=== PATIENT | female | born 1980 | race Caucasian/White ===

== ENCOUNTER 2017-10-27 16:46 | Emergency (ER) | payer OTHER ==
[~2017-10-27] VITALS: Ht 154.9 cm; Wt 50.0 kg
[2017-10-27 16:48] VITALS: BP 100/57; TEMP 99.5
[2017-10-27 17:22] LABS: COLLECTION METHOD CLEAN CATCH
[2017-10-27 17:28] LABS: PH 8 (5-8); SQUAMOUS EPITHELIAL 0-2 /hpf; URINE APPEARANCE Hazy; URINE BACTERIA None Seen /hpf; URINE BILIRUBIN Negative (NEGATIVE); URINE BLOOD Negative (NEGATIVE); URINE COLOR Straw; URINE GLUCOSE Negative (NEGATIVE); URINE KETONE Negative (NEGATIVE); URINE LEUKOCYTE ESTERASE 3+ (NEGATIVE); URINE NITRATE Negative (NEGATIVE); URINE PROTEIN(semi-quant) Negative (NEGATIVE); URINE RBC 0-2 /hpf; URINE UROBILINOGEN Negative (NEGATIVE)
[2017-10-27 17:59] LABS: BASO % 0.3 % (0.0-2.0); EOS # 0.1 (0.0-0.7); EOS % 1.9 % (0-4.0); GRAN % 63.1 % (42.2-75.2); LYMPH # 1.8 (1.2-3.4); LYMPH % 28.2 % (20.0-51.0); MEAN CELL VOLUME 67 fl (80.0-100.0); MEAN CORPUSCULAR HGB CONC 29 g/dl (33.0-37.0); MONO # 0.4 (0.1-0.6); MONO % 6.3 % (1.7-9.3); PLATELET COUNT 236 K/mm3 (130-400); RED BLOOD COUNT 4.92 M/mm3 (4.10-5.30); REDCELL DISTRIBUTION WIDTH-CV 19.9 % (11.5-14.5)
[2017-10-27] MEDS ORDERED: CEFTIN250 MG/5 M PO (18:03)
[2017-10-27 18:06] LABS: ALBUMIN 4.3 gm/dL (3.5-5.0); BILIRUBIN,TOTAL 0.5 mg/dL (0.0-1.0); CALCIUM 8.9 mg/dL (8.4-10.2); CREATININE, serum 0.62 mg/dL (0.52-1.25); POTASSIUM 3.7 mmol/L (3.4-5.0); TOTAL PROTEIN 8.1 gm/dL (6.4-8.2)
[2017-10-27 18:07] LABS: HEMATOCRIT 32.8 % (37.0-47.0); HEMOGLOBIN 9.4 g/dl (12.5-16.0); MEAN CORPUSCULAR HEMOGLOBIN 19 pg (27.0-31.0)
[2017-10-27 18:25] VITALS: PULSE 96
== END 2017-10-27 18:26 | disposition home or self-care (01) ==
LOC: COL.ER 16:46
PROVIDERS: Nurse Practitioner
DX: N39.0 Urinary tract infection, site not specified (principal); D64.9 Anemia, unspecified

== ENCOUNTER 2017-11-12 16:30 | Emergency (ER) | payer OTHER ==
[~2017-11-12] VITALS: Ht 154.9 cm; Wt 52.3 kg
[~2017-11-12 16:30] MED LIST: CEFTIN250 MG/5 M PO
[2017-11-12 16:45] VITALS: BP 102/63; TEMP 98.2
[2017-11-12 17:33] LABS: COLLECTION METHOD CLEAN CATCH
[2017-11-12 17:41] LABS: MUCOUS Present /lpf; PH 6 (5-8); SQUAMOUS EPITHELIAL 0-2 /hpf; URINE APPEARANCE Hazy; URINE BACTERIA None Seen /hpf; URINE BILIRUBIN Negative (NEGATIVE); URINE BLOOD Negative (NEGATIVE); URINE COLOR Yellow; URINE GLUCOSE Negative (NEGATIVE); URINE KETONE Negative (NEGATIVE); URINE LEUKOCYTE ESTERASE Negative (NEGATIVE); URINE NITRATE Negative (NEGATIVE); URINE PROTEIN(semi-quant) Negative (NEGATIVE); URINE RBC None Seen /hpf; URINE UROBILINOGEN Negative (NEGATIVE)
[2017-11-12] MEDS ORDERED: LOTRISONE CREAM15 GM TP (17:55)
[2017-11-12] MEDS ORDERED: METROGEL-VAGINA0.75% VG (18:20)
[2017-11-12 18:59] VITALS: PULSE 82
== END 2017-11-12 19:00 | disposition home or self-care (01) ==
LOC: COL.ER 16:30
PROVIDERS: Emergency Medicine
DX: N76.0 Acute vaginitis (principal); F17.210 Nicotine dependence, cigarettes, uncomplicated; Z98.890 Other specified postprocedural states

== ENCOUNTER 2018-02-19 00:30 | Emergency (ER) | payer OTHER ==
[~2018-02-19] VITALS: Ht 165.1 cm; Wt 50.0 kg
[~2018-02-19 00:30] MED LIST changes: +LOTRISONE CREAM15 GM TP; +METROGEL-VAGINA0.75% VG
[2018-02-19 00:34] VITALS: BP 107/68; TEMP 98.3
[2018-02-19 02:16] VITALS: PULSE 89
== END 2018-02-19 02:35 | disposition home or self-care (01) ==
LOC: COL.ER 00:30
DX: S80.01XA Contusion of right knee, initial encounter (principal); S60.221A Contusion of right hand, initial encounter; Z23 Encounter for immunization; V19.9XXA Pedal cyclist (driver) (passenger) injured in unspecified traffic accident, initial encounter; Y92.410 Unspecified street and highway as the place of occurrence of the external cause

== ENCOUNTER 2018-02-20 22:13 | Emergency (ER) | payer OTHER ==
[~2018-02-20] VITALS: Ht 294.6 cm; Wt 50.0 kg
[2018-02-20 22:22] VITALS: BP 103/63; PULSE 95; TEMP 98.4
== END 2018-02-20 23:18 | disposition home or self-care (01) ==
LOC: COL.ER 22:13
DX: S10.96XA Insect bite of unspecified part of neck, initial encounter (principal); W57.XXXA Bitten or stung by nonvenomous insect and other nonvenomous arthropods, initial encounter

== ENCOUNTER 2018-06-19 14:36 | Emergency (ER) | payer OTHER ==
[~2018-06-19] VITALS: Ht 154.9 cm; Wt 52.0 kg
[2018-06-19 14:45] VITALS: TEMP 100.3
[2018-06-19] MEDS ORDERED: CLEOCIN HCL300 MG PO (18:17)
[2018-06-19] MEDS ORDERED: AUGMENTIN 400100 ML PO (18:17)
[2018-06-19 18:45] VITALS: BP 122/69; PULSE 108
== END 2018-06-19 18:46 | disposition home or self-care (01) ==
LOC: COL.ER 14:36
DX: N75.1 Abscess of Bartholin's gland (principal); Z98.890 Other specified postprocedural states

== ENCOUNTER 2018-08-16 10:10 | Emergency (ER) | payer OTHER ==
[~2018-08-16] VITALS: Ht 155 cm; Wt 50.0 kg
[~2018-08-16 10:10] MED LIST changes: +AUGMENTIN 400100 ML PO; +CLEOCIN HCL300 MG PO
[2018-08-16 10:25] VITALS: BP 107/56; TEMP 97.3
[2018-08-16 10:54] LABS: COLLECTION METHOD CLEAN CATCH
[2018-08-16 11:01] LABS: PH 6 (5-8); SQUAMOUS EPITHELIAL 0-2 /hpf; URINE APPEARANCE Clear; URINE BACTERIA None Seen /hpf; URINE BILIRUBIN Negative (NEGATIVE); URINE BLOOD Negative (NEGATIVE); URINE COLOR Colorless; URINE GLUCOSE Negative (NEGATIVE); URINE KETONE Negative (NEGATIVE); URINE LEUKOCYTE ESTERASE Trace (NEGATIVE); URINE NITRATE Negative (NEGATIVE); URINE PROTEIN(semi-quant) Negative (NEGATIVE); URINE RBC 0-2 /hpf; URINE UROBILINOGEN Negative (NEGATIVE)
[2018-08-16] MEDS ORDERED: FLAGYL500 MG PO ×2 (12:10)
[2018-08-16 12:14] VITALS: PULSE 85
[2018-08-16] MEDS ORDERED: VANDAZOLE 0.75%70 GM VG (12:24)
== END 2018-08-16 12:14 | disposition home or self-care (01) ==
LOC: COL.ER 10:10
PROVIDERS: Emergency Medicine
DX: N76.0 Acute vaginitis (principal); B96.89 Other specified bacterial agents as the cause of diseases classified elsewhere; F17.210 Nicotine dependence, cigarettes, uncomplicated